=== PATIENT | male | born 1985 | race Caucasian/White ===

== ENCOUNTER 2019-02-28 10:56 | Emergency (ER) | payer MEDICAID ==
[~2019-02-28] VITALS: Ht 176.5 cm; Wt 71.7 kg
[2019-02-28 11:08] VITALS: BP 130/74
--- NOTE | 2019-02-28 11:11 | NUR ---
Patient ambulated to bed 1. RN evaluating patient at bedside.
--- NOTE | 2019-02-28 11:21 | NUR ---
PT C/O DECREASED AUDITORY ACUITY FOR A WHILE W/ OCCASIONAL PAIN IN BILATERAL EARS & DIZZINESS BUT NOT AT THIS TIME. EAR CANNALS ARE CLEAR ON INSPECTION. TMS ARE VISIBLE BILATRAL. PT ALSO RESPORTS HAVING DIFFICULTY OF CONCENTRATION. DENIES TRAUMA TO THE HEAD. PATIENT STATES PAIN OF 0/10 AT THIS TIME; VSS; PATIENT POSITIONED FOR COMFORT; HOB ELEVATED; BEDRAILS UP X1; BED DOWN. ER MD MADE AWARE OF PT STATUS.
--- NOTE | 2019-02-28 11:52 | NUR ---
IRRIGATED PT'S LEFT AND RIGHT EAR PER MD
--- NOTE | 2019-02-28 12:13 | NUR ---
Patient transferred to bed 2 for further care. RN re-evaluating the patient at bedside.
[2019-02-28 13:24] VITALS: BP 121/68
--- NOTE | 2019-02-28 13:24 | NUR ---
Patient discharged with v/s stable. Written and verbal after care instructions given and explained. Patient verbalized understanding. Ambulatory with steady gait. All questions addressed prior to discharge. Advised to follow up with PMD.
== END 2019-02-28 13:24 | disposition home or self-care (01) ==
LOC: MED 10:56
DX: H91.10 Presbycusis, unspecified ear (principal)
CPT/HCPCS: 99283

== ENCOUNTER 2019-08-10 14:44 | Emergency (ER) | payer MEDICAID ==
[~2019-08-10] VITALS: Ht 177.8 cm; Wt 71.2 kg
[2019-08-10 14:48] VITALS: BP 116/66
--- NOTE | 2019-08-10 14:59 | NUR ---
34 Y/O MALE BIBA BLS FOR ALTERED MENTAL STATUS AND ETOH. PT WAS FOUND OUTSIDE WITH PINT OF VODKA. PER EMS PT HAS BEEN DRINKING FOR THE LAST 3 DAYS. PT RESTING IN BED WITH EYES CLOSED, STATES 5/10 BACK PAIN. DENIES DRUG USE. AOX3. VSS MEDHX: BIPOLAR
[2019-08-10] MEDS ORDERED: MULTIVITAMIN-12 10 ML, THIAMINE 100 MG, FOLIC ACID 1 MG, MAGNESIUM SULFATE 50% 2,000 MG... IV SCH ×5 (15:00)
--- NOTE | 2019-08-10 15:04 | NUR ---
SPOKE TO PTS GIRLFRIEND, STATES PT HAS BEEN DRINKING LIQUOR AND DOING METH, UNKNOWN LAST TIME HE USED. FIGUEROA-- [phone]
--- NOTE | 2019-08-10 15:14 | NUR ---
18G IV PLACED TO PTS RT AC, BLOOD DRAWN AT THIS TIME
[2019-08-10 15:17] LABS: BASOPHILS # (AUTO) 0.1 K/uL (0.00-0.22); EOSINOPHILS % (AUTO) 0.3 % (0.0-4.0); HEMATOCRIT 45.6 % (36-52); HEMOGLOBIN 15.5 g/dL (12.0-18.0); MEAN CORPUSCULAR HEMOGLOBIN 33 pg (27-31); MONOCYTES # (AUTO) 1.2 K/uL (0.8-1.0); RED CELL DISTRIBUTION WIDTH 13.1 % (11.6-13.7)
[2019-08-10 15:20] LABS: BASOPHILS % (AUTO) 0.5 % (0.0-2.0); LYMPHOCYTES # (AUTO) 1.6 K/uL (2.0-11.5); MEAN CORPUSCULAR HGB CONC 34 g/dL (33-37); MEAN CORPUSCULAR VOLUME 97.1 fL (80-94); MONOCYTES % (AUTO) 10.9 % (1.7-9.3); NEUTROPHILS % (AUTO) 73.3 % (42.2-75.2); PLATELET COUNT (AUTO) 288 K/uL (140-450); WHITE BLOOD COUNT (AUTO) 10.9 K/uL (4.8-10.8)
[2019-08-10 15:40] LABS: ALBUMIN 4.1 g/dL (3.4-5.0); ANION GAP 16.5 (8-16); ASPARTATE AMINOTRANSFERASE 23 U/L (15-37); CARBON DIOXIDE 26.5 mmol/L (21-32); CHLORIDE 101 mmol/L (98-107); GFR ARICAN-AMERICAN 109 mL/min (>90); GLUCOSE 137 mg/dL (74-106); SODIUM SERUM 141 mmol/L (136-145); TOTAL BILIRUBIN 1.1 mg/dL (0.0-1.0); UREA NITROGEN, BLOOD 10 mg/dL (7-18)
[2019-08-10 15:48] LABS: ACETAMINOPHEN < 0.5 ug/ml (10-30); SALICYLATE < 2.8 mg/dL (2.8-20.0)
[2019-08-10] MEDS ORDERED: POTASSIUM CHLORIDE 10 MEQ TABER PO ONE (16:00)
--- NOTE | 2019-08-10 16:20 | NUR ---
PT RESTING IN BED WITH EYES CLOSED, AROUSABLE TO NAME. VSS. WILL CONTINUE TO MONITOR
[2019-08-10 16:41] LABS: BARBITURATE, URINE NEGATIVE ng/ml (NEG <=200); BENZODIAZEPINE, URINE NEGATIVE ng/mL (NEG <=200); COCAINE, URINE NEGATIVE ng/mL (NEG <=300); OPIATE, URINE NEGATIVE ng/mL (NEG <=2000); PHENCYCLIDINE SCREEN,URINE POSITIVE ng/mL (NEG <=25)
[2019-08-10 16:42] LABS: CANNABINOID, URINE POSITIVE ng/mL (NEG <=50)
--- NOTE | 2019-08-10 17:00 | NUR ---
IV DISCONTINUED, 2X2 GAUZED PLACED TO IV SITE, BLEEDING CONTROLLED
[2019-08-10 17:09] VITALS: BP 110/62
== END 2019-08-10 17:10 | disposition home or self-care (01) ==
LOC: MED 14:44
DX: F19.10 Other psychoactive substance abuse, uncomplicated (principal); F10.129 Alcohol abuse with intoxication, unspecified; Y90.9 Presence of alcohol in blood, level not specified
CPT/HCPCS: 36415; 80053; 80305; 85025; 93005; 96365; 99284; A9153; G0480; G0482; J3411; J3475; J3490

== ENCOUNTER 2019-11-24 03:39 | Emergency (ER) | payer MEDICAID ==
[~2019-11-24] VITALS: Ht 177.8 cm; Wt 66.5 kg
[2019-11-24 03:45] VITALS: BP 136/96
[2019-11-24] MEDS ORDERED: ONDANSETRON 4 MG/2 ML VIAL IVP ONE (04:20)
[2019-11-24] MEDS ORDERED: KETOROLAC 30 MG/ML VIAL IVP ONE (04:20)
[2019-11-24] MEDS ORDERED: NACL 0.9% 1,000 ML IV ONE (04:20)
[2019-11-24 04:41] LABS: BASOPHILS # (AUTO) 0.1 K/uL (0.00-0.22); BASOPHILS % (AUTO) 0.9 % (0.0-2.0); EOSINOPHILS % (AUTO) 0.5 % (0.0-4.0); HEMATOCRIT 43.1 % (36-52); HEMOGLOBIN 14.8 g/dL (12.0-18.0); LYMPHOCYTES # (AUTO) 1.1 K/uL (2.0-11.5); LYMPHOCYTES % (AUTO) 14.7 % (20.5-51.1); MEAN CORPUSCULAR HEMOGLOBIN 33 pg (27-31); MEAN CORPUSCULAR HGB CONC 34 g/dL (33-37); MEAN CORPUSCULAR VOLUME 95.9 fL (80-94); MONOCYTES # (AUTO) 0.8 K/uL (0.8-1.0); MONOCYTES % (AUTO) 10.9 % (1.7-9.3); NEUTROPHILS # (AUTO) 5.4 K/uL (1.8-7.7); PLATELET COUNT (AUTO) 321 K/uL (140-450); RED CELL DISTRIBUTION WIDTH 13.4 % (11.6-13.7); WHITE BLOOD COUNT (AUTO) 7.4 K/uL (4.8-10.8)
[2019-11-24] MEDS ORDERED: DICYCLOMINE HCL LIQUID 20 MG, ALUMINUM HYD/MAG/SIMETHICONE 30 ML, LIDOCAINE VISCOUS 2% ... PO ONE ×3 (04:45)
[2019-11-24] MEDS ORDERED: ALUMINUM HYD/MAG/SIMETHICONE 30 ML UDC ONE (04:46)
[2019-11-24] MEDS ORDERED: DICYCLOMINE HCL LIQUID 10 MG/5 ML UDC ONE (04:46)
[2019-11-24] MEDS ORDERED: LIDOCAINE VISCOUS 2% 20 ML UDC ONE (04:46)
[2019-11-24 04:52] LABS: ALBUMIN 4.4 g/dL (3.4-5.0); ANION GAP 16.8 (8-16); CARBON DIOXIDE 24.9 mmol/L (21-32); CREATININE 1.1 mg/dL (0.6-1.3); POTASSIUM 3.7 mmol/L (3.5-5.1); TOTAL BILIRUBIN 0.4 mg/dL (0.0-1.0)
[2019-11-24] MEDS ORDERED: MORPHINE SULFATE 4 MG/ML SYR IVP ONE (05:30)
[2019-11-24 05:41] VITALS: BP 136/96
== END 2019-11-24 05:42 | disposition home or self-care (01) ==
LOC: MED 03:39
DX: R10.13 Epigastric pain (principal); R11.2 Nausea with vomiting, unspecified
CPT/HCPCS: 36415; 80053; 83690; 85025; 96374; 96375; 99284; J1885; J2270; J2405; 96361; J7030

== ENCOUNTER 2020-11-21 18:51 | Emergency (ER) | payer MEDICAID, SELFPAY ==
[~2020-11-21] VITALS: Ht 175.3 cm; Wt 72.1 kg
[2020-11-21 19:04] VITALS: BP 136/111
--- NOTE | 2020-11-21 19:18 | NUR ---
BIB SELF C/O COUGH, DIFFICULTHY BREATHING, VALENTIN, LEFT CHEST PAIN X 5 DAYS. P 124, O2SAT 98% AT THIS TIME.
--- NOTE | 2020-11-21 19:30 | NUR ---
Dr. Gasca examining patient.
[2020-11-21] MEDS ORDERED: ARIPiprazole 10 MG TAB PO STA (19:31)
[2020-11-21] MEDS ORDERED: LORazepam 2 MG/ML VIAL IVP ONE ×2 (19:35→21:40)
[2020-11-21] MEDS ORDERED: NACL 0.9% 1,000 ML IV ONE (19:35)
--- NOTE | 2020-11-21 19:35 | NUR ---
PT TAKEN TO BED 7
[2020-11-21 19:51] LABS: BASOPHILS % (AUTO) 0.4 % (0.0-2.0); EOSINOPHILS # (AUTO) 0.1 K/uL (0-0.4); EOSINOPHILS % (AUTO) 0.8 % (0.0-4.0); HEMATOCRIT 45.9 % (36-52); HEMOGLOBIN 15.7 g/dL (12.0-18.0); LYMPHOCYTES # (AUTO) 1.4 K/uL (2.0-11.5); MEAN CORPUSCULAR HEMOGLOBIN 33 pg (27-31); MEAN CORPUSCULAR HGB CONC 34 g/dL (33-37); MEAN CORPUSCULAR VOLUME 97.1 fL (80-94); MONOCYTES # (AUTO) 0.8 K/uL (0.8-1.0); MONOCYTES % (AUTO) 12.2 % (1.7-9.3); NEUTROPHILS # (AUTO) 4.2 K/uL (1.8-7.7); NEUTROPHILS % (AUTO) 64.6 % (42.2-75.2); PLATELET COUNT (AUTO) 323 K/uL (140-450); RED BLOOD CELL COUNT(AUTO) 4.72 MIL/uL (4.20-6.10); RED CELL DISTRIBUTION WIDTH 13.1 % (11.6-13.7); WHITE BLOOD COUNT (AUTO) 6.4 K/uL (4.8-10.8)
[2020-11-21 20:36] LABS: ALBUMIN 4.1 g/dL (3.4-5.0); ASPARTATE AMINOTRANSFERASE 13 U/L (15-37); CARBON DIOXIDE 24.4 mmol/L (21-32); CHLORIDE 99 mmol/L (98-107); CREATININE 1.1 mg/dL (0.6-1.3); GFR ARICAN-AMERICAN 97 mL/min (>90); GLUCOSE 177 mg/dL (74-106); POTASSIUM 3.4 mmol/L (3.5-5.1); SODIUM SERUM 133 mmol/L (136-145); TOTAL BILIRUBIN 0.2 mg/dL (0.0-1.0); UREA NITROGEN, BLOOD 10 mg/dL (7-18)
[2020-11-21 20:37] LABS: ACETAMINOPHEN < 0.5 ug/ml (10-30); SALICYLATE < 2.8 mg/dL (2.8-20.0)
--- NOTE | 2020-11-21 21:35 | NUR ---
Dr. Gasca examining patient.
[2020-11-21 21:38] LABS: APPEARANCE,URINE CLEAR (CLEAR); BILIRUBIN,URINE NEGATIVE (NEGATIVE); BLOOD, URINE NEGATIVE (NEGATIVE); COLOR,URINE YELLOW (YELLOW); LEUKOCYTE ESTERASE ,URINE NEGATIVE (NEGATIVE); NITRITE, URINE NEGATIVE (NEGATIVE); UGLUCOSE NEGATIVE (NEGATIVE)
[2020-11-21 21:46] LABS: BARBITURATE, URINE NEGATIVE ng/ml (NEG <=200); BENZODIAZEPINE, URINE NEGATIVE ng/mL (NEG <=200); CANNABINOID, URINE POSITIVE ng/mL (NEG <=50); COCAINE, URINE NEGATIVE ng/mL (NEG <=300); OPIATE, URINE NEGATIVE ng/mL (NEG <=2000); PHENCYCLIDINE SCREEN,URINE NEGATIVE ng/mL (NEG <=25)
[2020-11-21] MEDS ORDERED: NICOTINE TRANSD SYS 14 MG/24 HR PATCH TD SCH (21:50)
--- NOTE | 2020-11-21 23:08 | NUR ---
TELEPSYCH DR. NOVA SPOKE WITH PT
--- NOTE | 2020-11-22 00:10 | NUR ---
PT AWAKE IN BED AT THIS TIME. PT STATES NO PAIN. ONE SIDE RAIL UP AND BED IN LOWEST POSITION.
--- NOTE | 2020-11-22 00:45 | NUR ---
[place] [employer] AT BEDSIDE
--- NOTE | 2020-11-22 01:24 | NUR ---
PT PLACED ON A HOLD BY YAJAIRA DICK
[2020-11-22] MEDS ORDERED: ACETAMINOPHEN 325 MG TAB PO ONE ×2 (02:35→10:05)
--- NOTE | 2020-11-22 02:42 | NUR ---
Danielito borden in [place] - 11/22/20 at 0605 by MARTI NAVI CALLED TO ADVISE THAT P/U ETA IS [id number]
--- NOTE | 2020-11-22 06:09 | NUR ---
PT SLEEPING IN BED. AWOKE PT TO PLACE NICOTINE PATCH. PT STATES NO PAIN AT THIS TIME. SIDE RAILS UP AND BED IN LOWEST POSITION
--- NOTE | 2020-11-22 07:04 | NUR ---
Dr. Armando examining patient.
--- NOTE | 2020-11-22 07:30 | NUR ---
Report and continuation of care received from HAWA Trevino.
--- NOTE | 2020-11-22 08:21 | NUR ---
Breakfast mealtray provided at bedside. Pt completing meal at this time
--- NOTE | 2020-11-22 09:55 | NUR ---
Patient states 10/10 headache and c/o left-sided chest pain, 7/10, sharp/constant, radiating to his R side. Dr. Armando made aware
[2020-11-22] MEDS ORDERED: LORazepam 1 MG TAB PO ONE (10:05)
--- NOTE | 2020-11-22 11:10 | NUR ---
Patient on iPad for Telepsych consultation with Dr. Luong
--- NOTE | 2020-11-22 12:00 | NUR ---
spoke with Joan wade transportation home for patient. States to call Demi (sister) [phone]
--- NOTE | 2020-11-22 12:02 | NUR ---
No answer from Demi; Voicemail message left.
[2020-11-22 13:03] VITALS: BP 158/99
== END 2020-11-22 13:38 | disposition home or self-care (01) ==
LOC: MED 18:51
DX: F29 Unspecified psychosis not due to a substance or known physiological condition (principal); Z20.822 Contact with and (suspected) exposure to COVID-19; F41.9 Anxiety disorder, unspecified; F60.0 Paranoid personality disorder; R45.851 Suicidal ideations; R05.9 Cough, unspecified
CPT/HCPCS: 36415; 71045; 80053; 80305; 81003; 84484; 85025; 87426; 93005; 96361; 96374; 96376; 99285; G0480; G0482; J2060; J7030; Q0092; U0003